=== PATIENT | female | born 1975 | race Caucasian/White ===

== ENCOUNTER 2018-12-14 17:43 | Inpatient (IN) ==
--- NOTE | 2018-12-14 18:32 | Diag Imaging Result Doc PS360 ---
EXAM: CHEST-1 VIEW 12/14/2018 HISTORY: POSSIBLE SEPSIS TECHNIQUE: AP portable at 1822 COMMENT: There are bilateral breast expanders. There is a Port-A-Cath on the right with its tip in the superior vena cava. The heart size and pulmonary vascularity are within normal limits. The lungs appear to be clear. There are no previous studies available for comparison. IMPRESSION: No evidence of acute disease. Electronically signed by Yon Ritchie 12/14/2018 6:30 PM
[2018-12-14] MEDS ORDERED: NS 1,000 ML IV ONE ×2 (18:35→18:36)
[2018-12-14] MEDS ORDERED: NS 500 ML IV ONE (18:37)
[2018-12-14 18:52] LABS: URINE SOURCE CLEAN CATCH
[2018-12-14 18:56] LABS: BILIRUBIN URINE NEGATIVE (NEGATIVE); BLOOD URINE MODERATE (NEGATIVE); COLOR YELLOW; GLUCOSE URINE NEGATIVE (NEGATIVE); KETONE URINE NEGATIVE (NEGATIVE); LEUKOCYTES URINE TRACE (NEGATIVE); NITRITE URINE NEGATIVE (NEGATIVE); PROTEIN URINE 50 mg/dL (NEGATIVE); SP GRAVITY URINE 1.011; TURBIDITY URINE CLEAR (CLEAR); UROBILINOGEN URINE NORMAL (NORMAL)
[2018-12-14 18:58] LABS: UR EPITHELIAL CELLS <10 /HPF (<10); URINE BACTERIA NEGATIVE /HPF; URINE RBC <10 /HPF (<10); URINE WBC <10 /HPF (<10)
[2018-12-14] MEDS ORDERED: VANCOMYCIN 1 GM/NS 1 GM/250 ML IVPB IV ONE (19:14)
[2018-12-14] MEDS ORDERED: MERREM 1 GM in NS 50 ML IV ONE (19:14)
[2018-12-14 19:23] LABS: BASO# 0.04 X1000 (0.0-0.2); BASO% 0.4 % (0.0-0.8); EOS# 0.01 X1000 (0.0-0.7); EOS% 0.1 % (0.0-10.0); HEMATOCRIT 40.2 % (37.0-47.0); HEMOGLOBIN 13.3 g/dL (12.0-16.0); IMM GRAN# 0.08 X1000 (0.0-0.04); IMM GRAN% 0.8 % (0.0-0.5); LYMPH% 10.9 % (20.5-51.1); MCH 30.3 PG (27-31); MCHC 33.1 g/dL (33-37); MCV 91.6 FL (81-99); MONO# 0.93 X1000 (0.11-0.59); MONO% 9.2 % (1.7-9.3); MPV 9.4 FL (7.4-10.4); NEUT% 78.6 % (42.2-75.2); PLT 360 X1000 (130-400); RBC 4.39 XMIL (4.2-5.4); RDW 14.7 % (11.5-14.5); WBC 10.06 X1000 (4.8-10.8)
[2018-12-14 19:27] LABS: INR 1.08; PROTIME 14.9 Seconds (11.0-16.0)
[2018-12-14 19:28] LABS: PTT 36.2 Seconds (22.3-41.8)
[2018-12-14] MEDS ORDERED: ZOFRAN IV ONE (19:29)
[2018-12-14] MEDS ORDERED: MORPHINE IV ONE (19:29)
[2018-12-14 19:42] LABS: ALB/GLOB RATIO 1.5; ALBUMIN 4.3 g/dL (3.5-5.0); CALCIUM 8.8 mg/dL (8.8-10.2); CREATININE 1.1 mg/dL (0.5-0.9); POTASSIUM 3.4 mmol/L (3.5-5.1); TOTAL BILIRUBIN 0.36 mg/dL (0.20-1.00); TOTAL PROTEIN 7.1 g/dL (6.3-8.3)
[2018-12-14 19:52] LABS: BANDS 4 % (0-1); LARGE PLATELETS OCCASIONAL; LYMPHS 13 % (21-51); MONO 5 % (1-9); SEGS 74 % (42-75); STOMATOCYTES OCCASIONAL
[2018-12-14] MEDS ORDERED: MORPHINE ONE (20:02)
[2018-12-14] MEDS ORDERED: TYLENOL PO ONE (20:28)
--- NOTE | 2018-12-14 20:46 | PROVIDER DOCUMENTATION ---
This chart was entered by Argenis Tiwari Scribe, acting as scribe for Edwardo Chairez MD. HPI-Fever - General Chief Complaint: Possible Sepsis-D Stated Complaint: FEVER,DIARRHEA Time Seen by Provider: 12/14/18 18:17 Source: patient Allergies/Adverse Reactions: Patient Allergies Allergy/AdvReac Type Severity Reaction Status Date / Time No Known Allergies Allergy Verified 12/14/18 19:12 Home Medications: Home Medication List Medication Instructions Recorded Confirmed Last Taken Type Bupropion HCl [Bupropion Xl] 300 mg PO DAILY 12/14/18 12/14/18 Unknown History Eszopiclone [Lunesta] 3 mg PO DAILY 12/14/18 12/14/18 Unknown History Lisinopril 1 tab PO DAILY 12/14/18 12/14/18 Unknown History Pantoprazole [Protonix] 40 mg PO DAILY@0700 12/14/18 12/14/18 Unknown History - History of Present Illness-Fever Nature of Presenting Problem: 43 yof presents to er w/co pt has hx of breast cancer. pt c/o stomach pain that feels like contractions, bm's that were not normal, fever of 102.6, and chills. pt states on saturday and saturday, vomited and had bm's that were like judy in texture. pt last had chemo 12/03/18. pt has double mastectomy and port in june [address]'s are Dr. Seals and Dr. Le. pt has no cp, no uti symptoms or neurological deficits. Fever Severity/Quality: reports: greater than 102 F Onset/Duration: reports: 6 days ago Timing: reports: still present Severity: reports: mild Context: reports: cancer-chemotherapy (breast) Cognitive Baseline: alert, oriented x3 Review of Systems - Adult - REVIEW OF SYSTEMS - ADULT Constitutional: reports: see HPI, chills, fever Eyes: reports: no symptoms reported Ears, Nose, Mouth & Throat: reports: no symptoms reported Cardiovascular: reports: no symptoms reported. denies: chest pain Respiratory: reports: no symptoms reported, other (heavy, deep breathing per pt .). denies: cough, excessive sputum production, hemoptysis Gastrointestinal: reports: no symptoms reported, vomiting, other (judy-like bm's). denies: abdominal pain, constipation, difficulty swallowing Genitourinary: reports: no symptoms reported. denies: frequency, flank pain, frequent UTI's Musculoskeletal: reports: no symptoms reported Integumentary: reports: no symptoms reported Neurological: reports: no symptoms reported. denies: dizziness/vertigo, headache/migraines, loss of balance, seizure, syncope Psychiatric: reports: no symptoms reported Endocrine: reports: no symptoms reported Hematologic/Lymphatic: reports: no symptoms reported Allergic/Immunologic: reports: no symptoms reported All Other Systems: Reviewed and Negative Past History - Adult - PAST MEDICAL HISTORY-ADULT Review of Records: reports: Old Records Reviewed, Nursing Assessment Review, Medications Reviewed, Social history reviewed & non-contributory. Major Childhood Illnesses: reports: denies history Cardiovascular: reports: denies history Respiratory: reports: denies history Gastrointestinal: reports: denies history Obstetrical/Gynecological: reports: denies history Genitourinary: reports: denies history Musculoskeletal: reports: denies history Neurological: reports: denies history Endocrine/Immune: reports: denies history Other Conditions: reports: other cancer (breast cancer) - PRIOR SURGERIES/PROCEDURES Surgical/Procedure History: reports: breast (double masecetomy), other (chemo 12-03-18) - IMMUNIZATION STATUS Childhood Immunizations: See Nurse Assessment Flu Vaccine: See Nurse Assessment - FAMILY HISTORY Family History: reviewed, not pertinent - SOCIAL HISTORY Smoking: non-smoker Substance Use: none/never Physical Exam-General - PHYSICAL EXAM-ADULT Initial Vital Signs Reviewed: Yes - CONSTITUTIONAL General Appearance: alert, mild distress. negative: anxious, lethargic, slow to respond - EYES Eyes: PERRL/EOMI - HEAD, EARS, NOSE, MOUTH & THROAT HENMT: normocephalic/atraumatic, other (dry mucous membranes) - NECK Neck: non-tender, full range of motion, supple - RESPIRATORY Respiratory: chest non-tender, lungs clear, normal breath sounds, no pleuratic chest pain, no respiratory distress, no accessory muscle use. negative: accessory muscle use, crackles, rhonchi, stridor - CARDIOVASCULAR Cardiovascular: tachycardia. negative: bradycardia, extra beats, irregularly irregular - GASTROINTESTINAL (ABDOMEN) Abdominal Exam: normal bowel sounds, non tender, soft - LYMPHATIC Lymphatic: no adenopathy - MUSCULOSKELETAL Back Exam: normal inspection, no CVA tenderness, no vertebral tenderness Extremity: normal range of motion, non-tender, normal inspection - SKIN Integumentary: normal turgor, warm/dry, pallor. 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 negative: anxious, disheveled, paranoid, tearful Progress - PLAN OF CARE/RESULTS Progress/Plan/Lab Results: Vital Signs - 8 hr 12/14/18 18:06 12/14/18 18:20 12/14/18 18:21 Temperature 102.6 F H Pulse Rate 140 H 131 H 132 H Respiratory Rate 20 22 29 H Blood Pressure 117/90 134/85 O2 Sat by Pulse Oximetry 98 98 12/14/18 18:30 12/14/18 18:33 12/14/18 18:40 Temperature Pulse Rate 130 H 130 H 134 H Respiratory Rate 21 29 H 25 H Blood Pressure 133/89 128/91 O2 Sat by Pulse Oximetry 97 96 98 12/14/18 18:41 12/14/18 18:48 12/14/18 18:50 Temperature Pulse Rate 130 H 131 H Respiratory Rate 26 H 34 H Blood Pressure 127/94 O2 Sat by Pulse Oximetry 99 96 95 12/14/18 19:00 12/14/18 19:10 12/14/18 19:18 Temperature Pulse Rate 130 H 125 H 121 H Respiratory Rate 27 H 33 H 34 H Blood Pressure 127/85 O2 Sat by Pulse Oximetry 95 96 96 12/14/18 19:20 12/14/18 19:30 12/14/18 19:33 Temperature Pulse Rate 120 H 122 H 121 H Respiratory Rate 33 H 34 H 18 Blood Pressure 134/89 O2 Sat by Pulse Oximetry 98 98 97 12/14/18 19:40 12/14/18 19:50 12/14/18 19:51 Temperature Pulse Rate 122 H 122 H 120 H Respiratory Rate 28 H 40 H 29 H Blood Pressure 128/88 O2 Sat by Pulse Oximetry 97 98 97 12/14/18 19:58 12/14/18 20:00 12/14/18 20:03 Temperature Pulse Rate 120 H 118 H 118 H Respiratory Rate 15 22 33 H Blood Pressure 128/88 137/86 O2 Sat by Pulse Oximetry 97 97 98 12/14/18 20:27 Temperature 102.9 F H Pulse Rate Respiratory Rate Blood Pressure O2 Sat by Pulse Oximetry Laboratory Results - last 24 hr 12/14/18 12/14/18 12/14/18 18:30 18:55 18:55 WBC 10.06 RBC 4.39 Hgb 13.3 Hct 40.2 MCV 91.6 MCH 30.3 MCHC 33.1 RDW Std Deviation 14.7 H Plt Count 360 MPV 9.4 Immature Gran % (Auto) 0.8 H Neut % (Auto) 78.6 H Lymph % (Auto) 10.9 L Spink % (Auto) 9.2 Eos % (Auto) 0.1 Baso % (Auto) 0.4 Immature Gran # (Auto) 0.08 H Neut # (Auto) 7.90 H Lymph # (Auto) 1.10 L Spink # (Auto) 0.93 H Eos # (Auto) 0.01 Baso # (Auto) 0.04 Segmented Neutrophils 74 Band Neutrophils 4 H Lymphocytes 13 L Monocytes 5 Metamyelocytes 1.0 Atypical Lymphocytes 3.0 Large Platelets OCCASIONAL Stomatocytes OCCASIONAL PT INR PTT (Actin FS) Sodium 136 Potassium 3.4 L Chloride 99 Carbon Dioxide 22 L Anion Gap 15 BUN 6 L Creatinine 1.1 H Estimated GFR/1.73 m2 54 BUN/Creatinine Ratio 5 Glucose 112 H Calculated Osmolality 270 Calcium 8.8 Total Bilirubin 0.36 AST 38 H ALT 64 H Alkaline Phosphatase 120 H Creatine Kinase 38 Troponin T Total Protein 7.1 Albumin 4.3 Globulin 2.8 Albumin/Globulin Ratio 1.5 Plasma Lactate Urine Source CLEAN CATCH Urine Color YELLOW Urine Turbidity CLEAR Urine pH 6.0 Ur Specific [place] 1.011 Urine Protein 50 A Ur Glucose (Stick) NEGATIVE Ur Ketones (Stick) NEGATIVE Urine Blood MODERATE A Urine Nitrite NEGATIVE Urine Bilirubin NEGATIVE Urobilinogen Dipstick NORMAL Urine Leukocytes TRACE A Urine WBC (Auto) <10 Urine RBC (Auto) <10 U Epithel Cells (Auto) <10 Urine Bacteria (Auto) NEGATIVE 12/14/18 12/14/18 12/14/18 18:55 18:55 18:55 WBC RBC Hgb Hct MCV MCH MCHC RDW Std Deviation Plt Count MPV Immature Gran % (Auto) Neut % (Auto) Lymph % (Auto) Spink % (Auto) Eos % (Auto) Baso % (Auto) Immature Gran # (Auto) Neut # (Auto) Lymph # (Auto) Spink # (Auto) Eos # (Auto) Baso # (Auto) Segmented Neutrophils Band Neutrophils Lymphocytes Monocytes Metamyelocytes Atypical Lymphocytes Large Platelets Stomatocytes PT 14.9 INR 1.08 PTT (Actin FS) 36.2 Sodium Potassium Chloride Carbon Dioxide Anion Gap BUN Creatinine Estimated GFR/1.73 m2 BUN/Creatinine Ratio Glucose Calculated Osmolality Calcium Total Bilirubin AST ALT Alkaline Phosphatase Creatine Kinase Troponin T < 0.010 Total Protein Albumin Globulin Albumin/Globulin Ratio Plasma Lactate 0.9 Urine Source Urine Color Urine Turbidity Urine pH Ur Specific [place] Urine Protein Ur Glucose (Stick) Ur Ketones (Stick) Urine Blood Urine Nitrite Urine Bilirubin Urobilinogen Dipstick Urine Leukocytes Urine WBC (Auto) Urine RBC (Auto) U Epithel Cells (Auto) Urine Bacteria (Auto) Orders Category Date Time Status Cardiac Monitoring DIRECTED Care 12/14/18 18:10 Active IV Insertion ORDERED Care 12/14/18 18:10 Completed Notify MD of + Sepsis Screen NOW Care 12/14/18 18:10 Active Notify Physician As Ordered Care 12/14/18 18:10 Active CHEST-1 VIEW [RAD] Stat Exams 12/14/18 18:10 Completed BLOOD CULTURE [BLDCUL] Stat Lab 12/14/18 19:47 Results CBC WITH DIFF [HEME] Stat Lab 12/14/18 18:55 Completed CK PROFILE [SP CHEM] Stat Lab 12/14/18 18:55 Completed COMPREHENSIVE METABOLIC PANEL [CHEM] Stat Lab 12/14/18 18:55 Completed LACTATE, PLASMA [CHEM] Lab 12/14/18 18:55 Completed LACTATE, PLASMA [CHEM] Lab 12/14/18 21:15 Uncollected LACTATE, PLASMA [CHEM] Lab 12/15/18 00:15 Uncollected PROTIME WITH INR [COAG] Stat Lab 12/14/18 18:55 Completed PTT [COAG] Stat Lab 12/14/18 18:55 Completed TROPONIN T Stat Lab 12/14/18 18:55 Completed URINALYSIS W/POSS RFLX CULT [URINALYSIS] Stat Lab 12/14/18 18:30 Completed URINE CULTURE [RM] Routine Lab 12/14/18 19:19 Received 0.9% Sodium Chloride Inj [Ns] 1,000 ml Med 12/14/18 18:35 Discontinued IV 999 mls/hr 0.9% Sodium Chloride Inj [Ns] 1,000 ml Med 12/14/18 18:36 Discontinued IV 999 mls/hr 0.9% Sodium Chloride Inj [Ns] 500 ml Med 12/14/18 18:37 Discontinued IV Wide Open mls/hr Acetaminophen [Tylenol] Med 12/14/18 20:28 Discontinued 1,000 mg PO NOW ONE Meropenem [Merrem] 1 gm Med 12/14/18 19:14 Discontinued 0.9% Sodium Chloride Inj [Ns] 50 ml IV NOW Morphine Med 12/14/18 20:02 Discontinued 2 mg .ROUTE .STK-MED ONE Morphine Med 12/14/18 19:29 Discontinued 2 mg IV NOW ONE Ondansetron [Zofran] Med 12/14/18 19:29 Discontinued 4 mg IV NOW ONE Vancomycin 1 gm/Ns Med 12/14/18 19:14 Discontinued 1 gm in 250 ml IV NOW Oxygen Device Stat Oth 12/14/18 18:10 Active Result Diagrams: 12/14/18 18:55 12/14/18 18:55 - EKG 1 Time of EKG reading by physician:: 18:25 EKG Read and Signed by:: Edwadro Chairez EKG Interpretation (*Must complete 3 of following elements*): Abnormal (borderline) Rate: 132 (poss left atrial enlargement ) Rhythm: Sinus tachy DC Interval: normal - XRAY 1 XRAY Study: Chest Impression: Normal ( EXAM: CHEST-1 VIEW 12/14/2018 HISTORY: POSSIBLE SEPSIS TECHNIQUE: AP portable at 1822 COMMENT: There are bilateral breast expanders. There is a Port-A-Cath on the right with its tip in the superior vena cava. The heart size and pulmonary vascularity are within normal limits. The lungs appear to be clear. There are no previous studies available for comparison. IMPRESSION: No evidence of acute disease. Electronically signed by Yon Ritchie 12/14/2018 6:30 PM 12/14/18 1830 Interpreting Physician: Yon Ritchie MD Dictated Date/Time: 12/14/181828) - CONSULTS/PCP/HOSPITALIST Notification #1 *Consult/PCP/Hospitalist*: Dr. Rubin Time Discussed: 20:44 Consult Disposition: Admit Departure - Departure Date of Disposition Decision: 12/14/18 Time of Disposition Decision: 20:45 DIAGNOSIS: Sepsis Qualifiers: Sepsis type: sepsis due to unspecified organism Qualified Code(s): A41.9 - Sepsis, unspecified organism Fever Qualifiers: Fever type: unspecified Qualified Code(s): R50.9 - Fever, unspecified Vomiting Qualifiers: Vomiting type: unspecified Vomiting Intractability: unspecified Nausea presence: unspecified Qualified Code(s): R11.10 - Vomiting, unspecified Disposition: ADMITTED INPATIENT 09 Certified Medical Emergency: Emergent Condition: Serious - Critical Care Note This patient required my direct & personal management of CC.: No Attestation - Physician/ STEFAN Attestation Patient care was provided by Advanced Practice Provider:: No The physician spent face to face time with patient:: Yes Advanced Practice Provider documentation review:: Supervising physician onsite and consulted in the evaluation and care of this patient. The physician did have a face to face encounter with the patient. This chart was documented by the indicated scribe, (Argenis Tiwari Scribe) and accurately reflects the services I performed and decisions made by Mihaela hernández Kofi X., MD, as attested by the provider's signature.
[2018-12-14] MEDS ORDERED: ZOFRAN IV PRN (21:20)
[2018-12-14] MEDS ORDERED: OFIRMEV 1000 MG/ISOTONIC SOLN 1,000 MG/100 ML BOTTLE IV PRN (21:20)
[2018-12-14] MEDS ORDERED: SODIUM CHLORIDE 0.9% INJ SCH (21:20)
[2018-12-14] MEDS ORDERED: MORPHINE IV PRN (21:20)
--- NOTE | 2018-12-14 21:43 | Diag Imaging Result Doc PS360 ---
EXAM: CT ABD/PELVIS W/IV CONT ONLY 12/14/2018 HISTORY: abdominal pain TECHNIQUE: This exam was performed using automated exposure control, adjustment of mA or kV according to patient size, and/or use of iterative reconstruction technique. COMMENT: There are no previous studies available for comparison. There is some platelike atelectasis in both lower lobes and the inferior portion of the lingula. The aorta is not distended. The mesenteric and renal arteries are patent. There is no evidence of nephrolithiasis or hydronephrosis. There is no evidence of gallstones. The liver, spleen, adrenal glands, and pancreas are within normal limits. There are no apparent renal masses. There is some gas and stool in the colon. There is no evidence of bowel obstruction. There are some prominent ileocolic nodes. The appendix is not distended or inflamed in appearance. Pelvis: There has been bilateral tubal ligation. There is no evidence of free fluid. There is some fluid in the rectum. There is some fluid-filled small bowel loops. The regional skeleton appears to be intact. There is sclerosis of the lower endplate of L2 as well as the upper endplate anteriorly of L2. These are probably degenerative changes. The lower endplate of L1 also demonstrates a focal area of sclerosis. IMPRESSION: The possibility of mild enterocolitis and mesenteric adenitis cannot be excluded. Electronically signed by Yon Ritchie 12/14/2018 9:41 PM
--- NOTE | 2018-12-14 21:56 | HISTORY AND PHYSICAL ---
PRIMARY CARE PHYSICIAN: Dr. Jessica from [facility] [place]. CHIEF COMPLAINT: Fever. HISTORY OF PRESENT ILLNESS: This is a 43-year-old female with history of left breast cancer who presented to the department complaining of fever that has been going on for the last 3 days. Also, she reported at the same time she started having profuse diarrhea 10 to 15 times per day, watery diarrhea. No blood in it. No mucous in it. She reports also vomiting just 1 but feeling a little bit nauseated and having low appetite. She denies any urinary symptoms. She denies any cough. She denies any sick contacts. Upon ER evaluation, she was found out to have a temperature of 102.9, tachycardic, tachypneic, so she is being admitted to the hospital for fever with sepsis of unknown source. PAST MEDICAL HISTORY: 1. Hypertension. 2. Left breast cancer. She received 16 chemotherapies, and the last one was in November 2018. PAST SURGICAL HISTORY: 1. Tubal ligation. 2. Bilateral mastectomy in June 2018 because of breast cancer. ALLERGIES: No known drug allergies. SOCIAL HISTORY: She drinks alcohol occasionally. Denies smoking or using illicit drugs. Patient lives with . FAMILY HISTORY: Dad from stroke and hypertension. Brother has hypertension. REVIEW OF SYSTEMS: Review of systems was reviewed and all symptoms are related to H and P. PHYSICAL EXAMINATION: VITAL SIGNS: Temperature 102.9, heart rate 118, respiratory rate 33, blood pressure 137/86. O2 saturation 97% on room air. GENERAL: This is a chronically ill-appearing, 43-year-old female lying in bed, in no acute distress. HEENT: Head is normocephalic, atraumatic. Mucous membranes are dry. Pupils equal, round, and reactive to light and accommodation. Pale conjunctivae. Anicteric sclerae. NECK: No JVD noted. No carotid bruits. No lymphadenopathy. No thyromegaly. CARDIOVASCULAR: S1-S2 heard. No murmurs, gallops, or rubs. Regular rate and rhythm. RESPIRATORY: Clear bilaterally to auscultation. No work of breathing or using accessory muscles. ABDOMEN: Soft, nontender to palpation. Bowel sounds present. No organomegaly. EXTREMITIES: No clubbing, cyanosis, or edema. Peripheral pulses present in both legs. NEUROLOGICAL: Patient alert and oriented x3. Moves 4 extremities. LABORATORY DATA: White cell count 10.06, hemoglobin 13.3, hematocrit 40.2, platelets 360,000. INR 1.08. BMP shows potassium 3.4, creatinine 1.1. Glucose 112 with AST 38, ALT 64. Unremarkable urinalysis. ASSESSMENT AND PLAN: 1. Sepsis of unknown origin. The patient came to the hospital complaining of fever and also profuse diarrhea and general malaise. At this point, we do not know exactly what is the reason why this patient is developing fever. Denies any urinary symptoms. Denies any respiratory symptoms. So far, what we have done is to draw blood culture and urine culture. We have ordered also stool studies including WBC on the stool, Clostridium difficile antigen and toxin, stool culture, ova and parasite, and will order a CT of the abdomen and pelvis with IV contrast to see if there is any abnormality in the GI tract. We will consult GI tomorrow. We will provide aggressive IV fluid resuscitation. WBC so far has been normal, and the patient is hemodynamically stable. We will continue to monitor this patient in the [facility]. We will start also broad-spectrum antibiotics with Teflaro and Zosyn. We will deescalate antibiotics as soon as we have results of blood and urine culture as well. We are going to consult also his primary oncologist, and we will go from there. 2. Hypertension. Blood pressure at this point is under control. We will continue with IV fluids. We are going to monitor blood pressure now and see how this patient does. 3. Left breast cancer. Aware. 4. Disposition. We will continue to monitor this patient closely, and further recommendations to follow according to the clinical situation of the patient. cc: Shalom Claros MD MTDD
[2018-12-14] MEDS: NS 1,000 ML IV SCH (22:50)
[2018-12-14] MEDS: PROTONIX IV SCH (22:51)
[2018-12-14] MEDS: TEFLARO 600 MG in NS 250 ML IV SCH (22:53)
[2018-12-15] MEDS: ZOSYN 4.5 GM in NS 100 ML IV SCH ×3 (00:03→15:54)
[2018-12-15 08:15] LABS: BASO# 0.04 X1000 (0.0-0.2); BASO% 0.7 % (0.0-0.8); EOS# 0.04 X1000 (0.0-0.7); EOS% 0.7 % (0.0-10.0); HEMATOCRIT 34.9 % (37.0-47.0); HEMOGLOBIN 11.3 g/dL (12.0-16.0); IMM GRAN# 0.04 X1000 (0.0-0.04); IMM GRAN% 0.7 % (0.0-0.5); LYMPH# 1.01 X1000 (1.2-3.4); LYMPH% 17.6 % (20.5-51.1); MCH 30.4 PG (27-31); MCHC 32.4 g/dL (33-37); MCV 93.8 FL (81-99); MONO# 0.65 X1000 (0.11-0.59); MONO% 11.3 % (1.7-9.3); MPV 9.8 FL (7.4-10.4); NEUT# 3.95 X1000 (1.4-6.5); PLT 283 X1000 (130-400); RBC 3.72 XMIL (4.2-5.4); RDW 14.5 % (11.5-14.5); WBC 5.73 X1000 (4.8-10.8)
[2018-12-15] MEDS: NS 1,000 ML IV SCH ×2 (08:20→15:15)
[2018-12-15 08:40] LABS: AGAP 11; ALB/GLOB RATIO 1.4; ALBUMIN 3.3 g/dL (3.5-5.0); ALKALINE PHOSPHATASE 85 U/L (32-104); BUN 6 mg/dL (8-22); CALCIUM 7.7 mg/dL (8.8-10.2); CHLORIDE 109 mmol/L (98-107); COSMO 278; CREATININE 0.9 mg/dL (0.5-0.9); ESTIMATED GFR > 60; GLUCOSE 88 mg/dL (70-104); GOT 34 U/L (10-30); GPT 50 U/L (10-36); POTASSIUM 3.2 mmol/L (3.5-5.1); SODIUM 141 mmol/L (136-145); TCO2 21 mmol/L (25-35); TOTAL PROTEIN 5.7 g/dL (6.3-8.3)
[2018-12-15] MEDS ORDERED: KLOR-CON PO ONE (09:47)
--- NOTE | 2018-12-15 10:10 | GASTROENTEROLOGY CONSULTATION ---
DATE: 12/15/2018 ATTENDING PHYSICIAN: Dr. Abdi. PRIMARY CARE DOCTOR: Dr. Gallardo. REASON FOR CONSULTATION: Abdominal pain, diarrhea, and enterocolitis on CT scan. HISTORY OF PRESENT ILLNESS: Ms. Montoya is a 43-year-old female who was admitted on 12/14/2018 for new onset of fever. In the ER, her fever was 102.9. She has a history of breast cancer diagnosed in May 2018. She has had bilateral mastectomy and she has 16 chemotherapies. Her last dose was 12/04/[address] Gallardo. She had tolerated chemotherapy well. She is complaining of abdominal pain for the last 2 months. It worsened in the last few days. Along with that, she has worsening diarrhea, about 10 to 15 times per day which is watery with no blood. She does report some nausea and vomiting, and decreased appetite. She had imaging done in the form of CT scan which showed enterocolitis. Gastroenterology was consulted for further management. The patient denies having an EGD or colonoscopy in the past. PAST MEDICAL HISTORY: Hypertension, left-sided breast cancer, status post chemotherapy and surgery. PAST SURGICAL HISTORY: Tubal ligation, bilateral mastectomy in June 2018 due to breast cancer. ALLERGIES: No known drug allergies. MEDICATIONS: Medications in the hospital include Ambien, Wellbutrin, ceftaroline, morphine, normal saline at 150 mL per hour, Tylenol 1000 mg IV q.6 hours as needed, Zofran, Protonix IV once daily, Zosyn, and she was given 1 dose of vancomycin. DIET: She is on clear liquid diet. SOCIAL HISTORY: She drinks alcohol occasionally. She denies any history of tobacco or illicit drugs. She lives with her . Her mother was very supportive, present at the bedside. FAMILY HISTORY: Her father from stroke and hypertension. Brother has hypertension. REVIEW OF SYSTEMS: Denies any current fever at this moment, although on admission yesterday, she did have a fever. Her fever resolved. Denied any chills or rigors. She denies any chest pain or shortness of breath. Does complain of abdominal pain, diffuse, in the periumbilical region. No rebound or guarding. She does complain of nausea and vomiting and diarrhea which is persistent. She denies any neurological complaints. She denied vomiting blood or passing blood in the stools. PHYSICAL EXAMINATION: Vital Signs: Temperature 97.8 degrees, pulse rate of 100, respiratory rate of 15, blood pressure 114/74, saturating 98% on room air. Body weight of 187 pounds and 9 ounces. BMI of 32.2 kg/m2. General Appearance: The patient is moderately built, moderately nourished. Lying in bed, in no acute distress. HEENT: Mild pallor. No icterus. Pupils equal, reactive to light. Neck: Supple. Abdomen: Discomfort in the periumbilical region. No rebound or guarding. Extremities: No cyanosis or clubbing. Neurologic: She is alert, awake, and oriented. LABORATORY DATA: Hemoglobin and hematocrit 11.3 and 34.9, white count of 5.73, platelet count of 283,000. Sodium 140, potassium 3.2, chloride 109, bicarb 21, anion gap 11, BUN of 6, creatinine 0.9, glucose of 88, calcium 7.7. Total bilirubin is 0.48 and direct 0.1, AST 34, ALT 50, alkaline phosphatase 85, total protein 5.7, albumin 3.3. Stool studies: Stool for white cells are many. C. difficile toxin and C. difficile antigen are negative. Blood cultures x2 have been drawn. They are currently pending. Stool cultures currently pending. CT scan of the abdomen and pelvis showed evidence of some fluid in the rectum and some fluid- filled small bowel loops, some stool and gas in the colon. No evidence of bowel obstruction. There were some prominent ileocolic nodes. IMPRESSION AND PLAN: 1. Abdominal pain with nausea, vomiting, and diarrhea. 2. History of breast cancer, status post bilateral mastectomy and chemotherapy. Last dose was twelve days ago. 3. Fever, which is now resolved. 4. Anemia. RECOMMENDATIONS: 1. We will keep her on a clear liquid diet. We will follow up on the stool studies. We will keep her on Protonix once daily. She will continue broad-spectrum antibiotics. We will tentatively schedule her for an EGD and possible colonoscopy tomorrow under anesthesia. The patient and family want to get it done while an inpatient. I have discussed the risks, benefits, and indications of EGD and colonoscopy with the patient. She acknowledged and agreed to proceed with the above. 2. We will start her on Culturelle 1 capsule p.o. b.i.d. 3. Further recommendations per hospital course. cc: MD Cole Dejesus MD
--- NOTE | 2018-12-15 10:44 | EKG Report ---
Test Performed on : 12/14/2018 6:25:16 PM Test Reason : ED. No order in [place] Blood Pressure : / mmHG Vent. Rate : 132 BPM Atrial Rate : 132 BPM P-R Int : 152 ms QRS Dur : 078 ms QT Int : 288 ms P-R-T Axes : 032 007 024 degrees QTc Int : 426 ms Sinus tachycardia. Possible Left atrial enlargement Borderline ECG No previous ECGs available Unconfirmed Result
[2018-12-15] MEDS: WELLBUTRIN XL PO SCH (10:45)
[2018-12-15] MEDS: TEFLARO 600 MG in NS 250 ML IV SCH ×2 (10:45→22:54)
[2018-12-15] MEDS ORDERED: GOLYTELY PO ONE (14:00)
--- NOTE | 2018-12-15 14:40 | PROGRESS NOTE ---
DATE: 12/15/2018 SUBJECTIVE: This patient feels better. She is still having diarrhea. Her fever is better. The last time she had an episode of fever was at 3 a.m., temperature around 102.9. She is slightly tachycardic, completely alert and oriented x3. Gastroenterology on board and probably they will do an endoscopy tomorrow. OBJECTIVE: Vital Signs: Temperature 98.9 degrees, pulse 102, respiratory rate 15, blood pressure 138/91, oxygen saturation 98 on room air. HEENT: Head normocephalic, no trauma. PERRLA. Neck: Supple. No JVD. No masses. Central trachea. Chest: Clear to auscultation. Port-A-Cath on the right upper part of the chest, no signs of infection. No wheezing, no rales. Abdomen: Soft, nondistended. No hepatosplenomegaly. Mild generalized tenderness to palpation. Extremities: No edema, no clubbing, no cyanosis. Neurological: The patient is alert and oriented x3. No focal deficits. LABORATORY DATA: WBC 5.7, hemoglobin 11.3, hematocrit 34.9, platelets 293. Sodium 141, potassium 3.2, chloride 109, bicarbonate 21, BUN 6, creatinine 0.9, glucose 88, calcium 7.7, AST 34, ALT 50, alkaline phosphatase 885, albumin 3.3. ASSESSMENT AND PLAN: 1. Sepsis, likely secondary to some enterocolitis. Continue with antibiotics. Gastroenterology department following this patient. She is still having diarrhea. We will monitor for now. Continue with IV fluids. 2. Hypokalemia. I will replace the potassium. 3. Mild enterocolitis. This patient has been placed on antibiotics. Gastroenterology department already evaluated this patient. We will continue with the same management for now. 4. History of breast cancer status post bilateral mastectomy and chemotherapy. 5. Anemia, normocytic. Aware. Stable. 6. Mild elevation of the liver function tests (LFTs), trending down. Continue with IV fluids. Probably secondary to dehydration. 7. Volume depletion. Continue with IV fluids. She seems to be doing better. 8. Mild acute kidney injury, resolved. 9. Hypertension. Actually the blood pressure medication has been stopped due to acute kidney injury and borderline low blood pressure. cc: Mason Mckeon MD
[2018-12-15] MEDS: VENOFER 300 MG in NS 250 ML IV SCH (17:25)
[2018-12-15] MEDS ORDERED: AMBIEN PO SCH (21:00)
[2018-12-15] MEDS: CULTURELLE PO SCH (22:37)
[2018-12-15] MEDS: PROTONIX IV SCH (22:37)
[2018-12-16] MEDS: ZOSYN 4.5 GM in NS 100 ML IV SCH ×3 (01:04→21:17)
[2018-12-16] MEDS: NS 1,000 ML IV SCH ×4 (03:19→15:37)
[2018-12-16 07:27] LABS: BASO# 0.03 X1000 (0.0-0.2); BASO% 0.5 % (0.0-0.8); EOS# 0.11 X1000 (0.0-0.7); EOS% 1.8 % (0.0-10.0); HEMATOCRIT 34.7 % (37.0-47.0); HEMOGLOBIN 11.4 g/dL (12.0-16.0); IMM GRAN# 0.04 X1000 (0.0-0.04); IMM GRAN% 0.7 % (0.0-0.5); LYMPH# 1.07 X1000 (1.2-3.4); MCH 30.1 PG (27-31); MCHC 32.9 g/dL (33-37); MCV 91.6 FL (81-99); MONO# 0.64 X1000 (0.11-0.59); MONO% 10.7 % (1.7-9.3); MPV 9.3 FL (7.4-10.4); NEUT# 4.07 X1000 (1.4-6.5); NEUT% 68.3 % (42.2-75.2); PLT 261 X1000 (130-400); RBC 3.79 XMIL (4.2-5.4); WBC 5.96 X1000 (4.8-10.8)
[2018-12-16 07:48] LABS: AGAP 14; ALB/GLOB RATIO 1.4; ALBUMIN 3.3 g/dL (3.5-5.0); ALKALINE PHOSPHATASE 85 U/L (32-104); BUN 4 mg/dL (8-22); CALCIUM 7.8 mg/dL (8.8-10.2); CHLORIDE 106 mmol/L (98-107); COSMO 275; CREATININE 0.7 mg/dL (0.5-0.9); ESTIMATED GFR > 60; GLUCOSE 67 mg/dL (70-104); GOT 41 U/L (10-30); GPT 57 U/L (10-36); POTASSIUM 3.3 mmol/L (3.5-5.1); SODIUM 140 mmol/L (136-145); TCO2 20 mmol/L (25-35); TOTAL PROTEIN 5.7 g/dL (6.3-8.3)
[2018-12-16] MEDS ORDERED: XYLOCAINE-MPF 2% ONE (08:46)
[2018-12-16] MEDS ORDERED: DIPRIVAN 1% ONE ×2 (08:46→09:16)
[2018-12-16] MEDS ORDERED: VERSED ONE (08:47)
[2018-12-16] MEDS ORDERED: FENTANYL ONE (09:01)
--- NOTE | 2018-12-16 10:39 | OPERATIVE NOTE ---
PROCEDURE DATE: 12/16/2018 PROCEDURE: 1. Upper gastrointestinal (GI) endoscopy. 2. Colonoscopy PROVIDER: Mo Florez MD INDICATIONS: Diarrhea, acute. MEDICATIONS: Monitored anesthesia care. DESCRIPTION OF PROCEDURE: Prior to the procedure, a history and physical was performed and patient's medication and allergies were reviewed. The patient's tolerance to previous anesthesia was also reviewed .the risks and benefits of the procedure and sedation options and risks were discussed with the patient. All questions were answered. Informed consent was obtained. After reviewing the risks and benefits, the patient was deemed in satisfactory condition to undergo the procedure. The upper endoscope was passed under direct visualization. Throughout the procedure, the patient's blood pressure, pulse, and oxygen saturations were monitored continuously. The endoscope was introduced through the mouth and advanced to the second part of the duodenum. The upper GI endoscopy was accomplished without difficulty. The patient tolerated the procedure well. The colonoscope was introduced through the anus and advanced to the terminal ileum. The colonoscopy was accomplished without difficulty. The quality of the prep was adequate. The patient tolerated the procedure well. COMPLICATIONS: No immediate complications. ESTIMATED BLOOD LOSS: Minimal. FINDINGS: Esophagus was notable for small hiatal hernia. The Z-line was regular at 40 cm from the incisors. Stomach was normal. The bulb and second portion of the duodenum were normal. Random gastric biopsies were obtained to rule out H. pylori. COLONOSCOPY FINDINGS: There was mild to moderate patchy erythema consistent with colitis without evidence of ulcerations seen throughout the colon, left greater than right. Terminal ileum was normal. Random biopsies of the terminal ileum were obtained with cold biopsy forceps. Random left and right biopsies of the colon were obtained as well. Retroflexion in the rectum revealed small internal hemorrhoids. IMPRESSION: 1. Hiatal hernia. 2. Pancolitis. 3. Small internal hemorrhoids. 4. Normal terminal ileum. RECOMMENDATIONS: Await pathology results. Resume regular diet, lactose-free. Antidiarrheal medications as needed for diarrhea. Continue supportive care. We will follow with you. Please call with any questions or concerns.
[2018-12-16] MEDS: WELLBUTRIN XL PO SCH (10:57)
[2018-12-16] MEDS: CULTURELLE PO SCH ×2 (10:57→21:17)
[2018-12-16] MEDS: VENOFER 300 MG in NS 250 ML IV SCH (11:00)
[2018-12-16] MEDS: TEFLARO 600 MG in NS 250 ML IV SCH (14:50)
[2018-12-16] MEDS ORDERED: KLOR-CON PO ONE (17:09)
--- NOTE | 2018-12-16 18:53 | PROGRESS NOTE ---
DATE: 12/16/2018 SUBJECTIVE: Patient reports feeling fine. Patient reports that she takes Lunesta at night for insomnia. Reports that she had 2 bowel movements watery that she is not sure if this is from the diarrhea that she is having for the last few days or from the colon preparation. She denies any abdominal pain, though. OBJECTIVE: Vital Signs: Temperature 98.6, heart rate 89, respiratory rate 20, blood pressure 133/88. O2 sat 99% on room air. General: This is a chronically ill appearing 43-year-old female lying in bed in no acute distress. Cardiovascular: S1, S2 heard. No murmurs, gallops or rubs. Regular rate and rhythm. There is a Port-A-Cath in the right upper part of the chest with no signs of infection. Respiratory: Clear bilaterally to auscultation. No work of breathing or using accessory muscles. Abdomen: Soft. Nontender to palpation. Bowel sounds present. No organomegaly. Extremities: No clubbing, cyanosis or edema. Peripheral pulses present in both legs. Neurologic: The patient is alert and oriented x 3. Moves 4 extremities. LABORATORY DATA: Reviewed. Potassium is 3.3 today. ASSESSMENT AND PLAN: 1. Sepsis likely secondary to enterocolitis. Patient has a spiked fever, just the afternoon 100.5 last time. For this enterocolitis she has had EGD which basically was unremarkable and a colonoscopy which showed pancolitis. At this time, we will continue with same management, in this case is Zosyn. Stool studies just showed elevation in white cell count, but C difficile toxin and antigen both are normal. Ova and parasite normal, too. I think at this point, we will continue with the same management. We will continue with IV fluids. 2. Hypokalemia. We are going to replete potassium. 3. Anemia of chronic disease. Stable. 4. Acute kidney injury, resolved. 5. Disposition. At this point, we are following the lead from GI. Will send this patient home whenever she is cleared. cc: Shalom Claros MD
--- NOTE | 2018-12-16 19:31 | HEMO/ONC CONSULTATION ---
DATE: 12/15/2018 ADMITTING PHYSICIAN: Shalom Claros MD REQUESTING PHYSICIAN: Shalom Claros MD We appreciate this consult. CHIEF COMPLAINT: ER/KY positive infiltrating ductal carcinoma. HISTORY OF PRESENT ILLNESS: Ms. Montoya is a very pleasant 43-year-old female well known to Dr. Gallardo, with a history of ER/KY positive infiltrating ductal carcinoma. She is status post Adriamycin and Cytoxan dose stints, with last treatment being 12/03/2018. She is currently awaiting radiation therapy, but began to experience fever and malaise of questionable etiology. Additionally, the patient had reported diarrhea for a couple of days prior to presentation to [facility], with nausea. Upon presentation to [facility], the patient's temperature was 102.9 degrees. She was tachycardic and tachypneic, and was admitted for questionable sepsis of unknown source. PAST MEDICAL HISTORY: 1. ER/KY positive infiltrating ductal carcinoma. 2. Hypertension. PAST SURGICAL HISTORY: 1. Tubal ligation. 2. Bilateral mastectomy 06/2018. SOCIAL HISTORY: The patient drinks alcohol occasionally. She does not use tobacco or illicit drugs. FAMILY HISTORY: Negative for any hematologic or oncologic disease. MEDICATIONS: On admission: 1. Compazine. 2. Lactulose. 3. Lidocaine/prilocaine topical cream. 4. Lisinopril. 5. Lunesta. 6. Wellbutrin. 7. Zofran. ALLERGIES: The patient has no known drug allergies. REVIEW OF SYSTEMS: A 14-point review of systems was obtained and is negative except as mentioned in HPI. PHYSICAL EXAMINATION: Ms. Montoya is a 43-year-old female lying supine in bed in no immediate distress. Vital signs: Temperature 97.8 degrees, blood pressure 114/74, heart rate 100, respirations 15, O2 saturation 99% on room air. HEENT: Normocephalic, atraumatic. Mucous membranes are slightly dry and pink. Sclerae anicteric. Extraocular movements intact. Neck is supple. Lungs clear to auscultation bilaterally. Chest expansion equal bilaterally. CV: S1, S2 are heard without murmur, rub or gallop. Abdomen is nondistended. Extremities: No clubbing, cyanosis or edema. Dermatologic: No rashes, bruises or lesions. Neurologic: The patient is awake, alert and oriented x3, and has no focal deficit. LABORATORY DATA: Hemoglobin 11.3, hematocrit 34.9, white blood cell count 5.73, platelets 283,000, ANC 3.95. Sodium 141, potassium 3.2, chloride 109, CO2 is 21, BUN 6, creatinine 0.9, glucose is 88. DIAGNOSTIC DATA: CT of the abdomen and pelvis reveals mild enterocolitis with mesenteric adenitis. Chest x-ray is negative for acute abnormality. ASSESSMENT AND PLAN: 1. Estrogen receptor/progesterone receptor-positive infiltrating ductal carcinoma, status post Adriamycin and Cytoxan dose stints on 12/03/2018. The patient is awaiting Radiation Oncology evaluation and treatment. 2. Fever and malaise of questionable etiology. The patient is on antibiotics prophylactically. 3. Diarrhea. Workup is currently in progress and Gastroenterology has been consulted. Of note, the patient does have mild enterocolitis and mesenteric adenitis on CT. 4. We will follow along with you and make further recommendations pending outcomes. The above reflects the history, exam, assessment and plan of Dr. Gallardo. Dictated by YUDITH Owens for Cole Gallardo MD cc: YUDITH Owens MD
[2018-12-16] MEDS ORDERED: LUNESTA PO SCH (21:00)
[2018-12-16] MEDS: PROTONIX IV SCH (21:17)
[2018-12-17] MEDS: TEFLARO 600 MG in NS 250 ML IV SCH ×2 (03:45→15:00)
[2018-12-17] MEDS: NS 1,000 ML IV SCH ×3 (05:33→14:59)
[2018-12-17] MEDS: ZOSYN 4.5 GM in NS 100 ML IV SCH ×2 (05:33→14:59)
[2018-12-17] MEDS ORDERED: TYLENOL PO PRN (05:38)
[2018-12-17 07:03] LABS: BASO# 0.04 X1000 (0.0-0.2); BASO% 0.7 % (0.0-0.8); EOS% 3.4 % (0.0-10.0); HEMATOCRIT 32.7 % (37.0-47.0); HEMOGLOBIN 10.8 g/dL (12.0-16.0); IMM GRAN% 1.7 % (0.0-0.5); LYMPH# 1.18 X1000 (1.2-3.4); LYMPH% 19.9 % (20.5-51.1); MCH 30.2 PG (27-31); MCV 91.3 FL (81-99); MONO# 0.82 X1000 (0.11-0.59); MONO% 13.8 % (1.7-9.3); MPV 9.7 FL (7.4-10.4); NEUT# 3.59 X1000 (1.4-6.5); NEUT% 60.5 % (42.2-75.2); PLT 306 X1000 (130-400); RBC 3.58 XMIL (4.2-5.4); RDW 14.1 % (11.5-14.5); WBC 5.93 X1000 (4.8-10.8)
[2018-12-17 07:11] LABS: AGAP 12; BUN 3 mg/dL (8-22); CALCIUM 8.2 mg/dL (8.8-10.2); CHLORIDE 105 mmol/L (98-107); COSMO 275; CREATININE 0.6 mg/dL (0.5-0.9); ESTIMATED GFR > 60; GLUCOSE 80 mg/dL (70-104); POTASSIUM 3.4 mmol/L (3.5-5.1); SODIUM 140 mmol/L (136-145); TCO2 23 mmol/L (25-35)
[2018-12-17] MEDS: CULTURELLE PO SCH (09:54)
[2018-12-17] MEDS: WELLBUTRIN XL PO SCH (09:54)
[2018-12-17] MEDS: VENOFER 300 MG in NS 250 ML IV SCH (09:55)
[2018-12-17 12:08] VITALS: BP 119/81
--- NOTE | 2018-12-17 14:04 | DISCHARGE SUMMARY ---
ADMISSION DATE: 12/14/2018 DISCHARGE DATE: 12/17/2018 CONSULTATIONS: 1. Dr. Guzman with gastroenterology. 2. Dr. Gallardo. PERTINENT PROCEDURES: 1. Abdomen and pelvis CT, possibility of mild enterocolitis and mesenteric adenitis could not be excluded. 2. Endoscopy and colonoscopy performed by Dr. Florez showed a hiatal hernia, pancolitis, small internal hemorrhoids, and a normal terminal ileum. DISCHARGE DIAGNOSES: 1. Sepsis on presentation, likely secondary to enterocolitis. The patient had spiked a fever. Her esophagogastroduodenoscopy and colonoscopy were unremarkable. They showed pancolitis and a hiatal hernia. Stool studies did show an elevation in her white blood cells. Clostridium difficile toxin and antigen were both normal. Ova and parasites were normal too. She was continued on intravenous antibiotics and intravenous fluids, improved. She was discharged home on Levaquin and Culturelle. 2. Estrogen receptor, progesterone receptor positive, infiltrating ductal carcinoma, status post Adriamycin and Cytoxan dose on 12/03/2018. The patient is awaiting radiation oncology evaluation and treatment. She is followed by Dr. Gallardo. 3. Hypokalemia, improved. 4. Anemia of chronic disease, stable. 5. Acute kidney injury, resolved. 6. Abdominal pain with nausea, vomiting, and diarrhea, improved. See #1. HOSPITAL COURSE: Briefly, Ms. Montoya is a 43-year-old, female with a history of left breast cancer who presented to the ED with fever that had been ongoing for 3 days. She also reported profuse diarrhea 10 to 15 times per day that was watery with no blood and no mucus. She reported she also vomited once but had been feeling nauseated with a low appetite. On evaluation in the ER, she was found to have a temperature of 102.9, tachycardic, tachypneic. She was admitted to the hospital for fever with sepsis of unknown origin. We did an abdomen and pelvis CT that did show mild enterocolitis and mesenteric adenitis. GI was consulted. She underwent an EGD and colonoscopy with Dr. Florez that showed a hiatal hernia, pancolitis, small internal hemorrhoids, and a normal terminal ileum. She was continued on IV antibiotics for her sepsis. All of her stool studies were negative. She was followed by her oncologist, Dr. Gallardo. She was IV hydrated with IV fluids. She has had a stable hospital course and will be discharged back home today to continue to follow up with Dr. Gallardo. VITAL SIGNS: At the time of her discharge, temperature is 98.2 degrees, heart rate 90, respirations 16, blood pressure 119/81, O2 is 98% on room air. DISCHARGE DIET: Regular with no dairy products. DISCHARGE MEDICATIONS: 1. Bupropion XL 300 mg p.o. daily. 2. Lisinopril 10 mg p.o. daily. 3. Lunesta 30 mg p.o. at bedtime. 4. Protonix 40 mg p.o. daily. 5. Culturelle 1 each p.o. b.i.d. 6. Levaquin 750 mg p.o. daily. 7. Flagyl 500 mg p.o. t.i.d. FOLLOWUP: Ms. Montoya is being discharged home with self care. She is to follow up with her oncologist in a week for results of ultrasound for possibility of DVT, as well as follow up with Dr. Guzman for her biopsy results. She is take all medications as prescribed. She can return to the ED or call 911 for any worsening of symptoms. Dictated by YUDITH Gonzales for Shalom Claros MD Addendum: Patient seen and examined by myself. Agree with YUDITH note. It reflects my assessment and plan. Patient is being discharged in stable condition to home. Will be seen by primary oncologist in a week if needed. cc: MD Gian Michele MD Sammy Becdach, MD MTDD
--- NOTE | 2018-12-17 14:12 | PROVIDER PROGRESS NOTE ---
Progress Note 12/17/2018 SUBJECTIVE: No acute overnight events. No diarrhea this morning. Tolerating diet. No N/V/F, abdominal pain. OBJECTIVE Last Vital Signs Temp 98.2 F 12/17/18 12:00 Pulse 90 12/17/18 12:00 Resp 16 12/17/18 12:00 BP 119/81 12/17/18 12:00 Pulse Ox 98 12/17/18 12:00 Height 5 ft 4 in Weight 187 lb 9 oz on RA GEN: awake, alert, NAD HEENT: anicteric, MMM NECK: supple, no jvd PULM; CTAB, no wheezing CV: RRR, no murmurs ABD: soft NT/ND, NABS EXT: no cce NEURO: nonfocal LABS 12/17/18 12/17/18 06:19 06:19 WBC 5.93 Hgb 10.8 L Plt Count 306 Sodium 140 Potassium 3.4 L Chloride 105 Carbon Dioxide 23 L BUN 3 L Creatinine 0.6 IMPRESSION: 1. Hiatal hernia. 2. Pancolitis. 3. Small internal hemorrhoids. 4. Normal terminal ileum. A/P: Ms. Montoya is a 43 year old woman with ER/HI positive infiltrating ductal carcinoma s/p Adriamycin and Cytoxan (last 12/03) who presented with acute diarrhea found to have pancolitis on colonoscopy. Biopsies pending. Stool studies negative. I suspect infectious etiology given improvement without need for antibiotics. #Colitis: f/u pathology, imodium as need for diarrhea, BRAT diet while having diarrhea; avoid ASA/NSAIDs #Anemia: likely secondary to chemotherapy #Breast ca: followed by oncology; apprec recs #Hypokalemia: mild; replete prn OK to discharge patient from GI perspective. Patient should follow-up with me in 2-4 weeks.
--- NOTE | 2018-12-19 12:56 | Extremity Venous Study ---
PROCEDURE NAME: Venous U/S Right Arm - 12/17/2018 SWITCH ENGINEER: Reanna. REQUESTING PHYSICIAN: Dr. Rubin. INDICATIONS: Edema, redness and pain with recent IV and a port in the right subclavian, status post bilateral mastectomies. FINDINGS: Deep superficial veins of right upper extremity and neck were visualized. The deep system is compressible without intraluminal thrombus. There is however, a thrombus noted in the cephalic vein starting in the right mid upper arm extending down the proximal forearm to the end in the median cubital vein at the AC fossa. SUMMARY: Acute superficial venous thrombosis seen of the cephalic vein and antecubital vein but no deep venous thrombosis noted. cc: MD Shalom Armenta MD
== END 2018-12-17 16:20 | disposition home or self-care (01) | DRG 872 ==
LOC: ED 17:43 → EDIPHOLD 17:44 → SUATTDRO 17:44 → 3N 12-15 02:47
PROVIDERS: ATTEND Internal Medicine
CPT/HCPCS: 71010; 71045; 74177; 80048; 80053; 80076; 81001; 82550; 83605; 84484; 85025; 85610; 85730; 86768; 87040; 87045; 87046; 87077; 87088; 87147; 87177; 87186; 87205; 87324; 87449; 88305; 88312; 88313; 89055; 93005; 93970; 93971; 94761; 96361; 96365; 96366; 96367; 96368; 96375; 96376; 99285; A9270; C9113; J0131; J0712; J1756; J2185; J2250; J2270; J2405; J2543; J3010; J3370; J7030; J7040; J7050; Q9967; S0164